=== PATIENT | male | born 1995 | race Two or more races ===

== ENCOUNTER 2020-06-03 06:34 | Emergency (ER) | payer SELFPAY ==
[~2020-06-03] VITALS: Ht 167.6 cm; Wt 61.3 kg
[2020-06-03 06:50] VITALS: BP 133/96
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
[2020-06-03] MEDS ORDERED: NEOMY/BACITR/POLYMYXIN OINT PACKET. TP ONE (07:15)
[2020-06-03] MEDS ORDERED: BUTALB/APAP/CAFEIN 50/325/40MG TABLET. PO ONE (07:30)
[2020-06-03] MEDS ORDERED: ONDANSETRON ODT 4 MG TAB.RAPDIS. ONE (07:34)
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
[2020-06-03] MEDS ORDERED: ONDANSETRON ODT 4 MG TAB.RAPDIS. PO ONE (07:45)
[2020-06-03] MEDS ORDERED: LIDOCAINE 2%/EPI 1:100,000 20 ML VIAL. INJ ONE (07:45)
[2020-06-03] MEDS ORDERED: ONDA4TAB12 PO (07:52)
[2020-06-03] MEDS ORDERED: BUTA1TAB23 PO (07:52)
== END 2020-06-03 08:15 | disposition home or self-care (01) ==
LOC: ER 06:34
DX: S01.01XA Laceration without foreign body of scalp, initial encounter (principal); R51.9 Headache, unspecified; H92.01 Otalgia, right ear; F41.9 Anxiety disorder, unspecified; F31.9 Bipolar disorder, unspecified; F17.200 Nicotine dependence, unspecified, uncomplicated; Z88.5 Allergy status to narcotic agent; Z91.040 Latex allergy status; Y08.89XA Assault by other specified means, initial encounter; Y93.89 Activity, other specified; Y92.89 Other specified places as the place of occurrence of the external cause; Y99.8 Other external cause status
CPT/HCPCS: 12002; 70450; 70486; 99285; J3490; 12001

== ENCOUNTER 2020-06-22 13:53 | Emergency (ER) | payer SELFPAY ==
[~2020-06-22] VITALS: Ht 167.6 cm; Wt 59.0 kg
[~2020-06-22 13:53] MED LIST: BUTA1TAB23 PO; ONDA4TAB12 PO
[2020-06-22 14:00] VITALS: BP 133/96
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
== END 2020-06-22 14:27 | disposition home or self-care (01) ==
LOC: ER 13:53
DX: S01.01XD Laceration without foreign body of scalp, subsequent encounter (principal); F31.9 Bipolar disorder, unspecified; F17.200 Nicotine dependence, unspecified, uncomplicated; Z91.040 Latex allergy status; Z88.5 Allergy status to narcotic agent; Y08.89XD Assault by other specified means, subsequent encounter
CPT/HCPCS: 99281

== ENCOUNTER 2020-09-20 21:26 | Emergency (ER) | payer SELFPAY ==
[~2020-09-20] VITALS: Ht 170.2 cm; Wt 147.0 kg
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
[2020-09-20] MEDS ORDERED: ONDA4TAB7 PO (22:55)
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
[2020-09-20 23:00] VITALS: BP 135/73
[2020-09-20] MEDS ORDERED: IBUPROFEN 400 MG TABLET. PO ONE (23:00)
[2020-09-20] MEDS ORDERED: ACETAMINOPHEN 500 MG TABLET PO ONE (23:00)
== END 2020-09-20 23:04 | disposition home or self-care (01) ==
LOC: ER 21:26
DX: S06.0X0A Concussion without loss of consciousness, initial encounter (principal); F31.9 Bipolar disorder, unspecified; F17.200 Nicotine dependence, unspecified, uncomplicated; F41.9 Anxiety disorder, unspecified; Z91.040 Latex allergy status; Z88.5 Allergy status to narcotic agent; W10.8XXA Fall (on) (from) other stairs and steps, initial encounter; Y93.89 Activity, other specified; Y92.89 Other specified places as the place of occurrence of the external cause; Y99.8 Other external cause status
CPT/HCPCS: 70450; 70486; 99285